=== PATIENT | female | born 1960 | race African-American/Black ===

== ENCOUNTER 2019-04-19 18:24 | Emergency (ER) | payer MEDICARE, OTHER ==
[~2019-04-19] VITALS: Ht 167.6 cm; Wt 86.2 kg
[~2019-04-19 18:24] MED LIST: FENO48TA16 PO; OMEP40CA2 PO; TRIA1TAB3 PO
[2019-04-19 19:13] VITALS: BP 130/94
--- NOTE | 2019-04-19 19:19 | PHYS DOC ---
Past Medical History Past Medical History: Hypertension Past Surgical History: Cholecystectomy, Other Additional Past Surgical Histo: hernia repair Alcohol Use: None Drug Use: None Adult General Chief Complaint Chief Complaint: MECHANICAL FALL HPI HPI Patient is a 58 year old [place] female who presents for evaluation of left knee pain, right elbow and left shoulder pain after falling from standing. Patient states she was walking yesterday at a local retail store when she tripped landing on ground. Denies hitting her head, loss of consciousness, dizziness or neck pain. Patient is not on anticoagulation therapy. Patient reports significant extremity pain throughout the day and has mostly been in bed. She is taking Flexeril and Percocet with some relief of symptoms. She is able to ambulate with steady gait and has full overdose of range of motion and injured extremities. She was not evaluated for her pain and injuries that time of the incident. She is seeking medical evaluation of her current injury. No other acute symptoms or complaints[] Review of Systems Review of Systems Review symptoms as per history of present illness.] All other systems were reviewed and found to be within normal limits, except as documented in this note. Allergies Allergies Allergies Coded Allergies Type Severity Reaction Last Updated Verified Penicillins Allergy Severe hives, itches 02/11/14 Yes Physical Exam Physical Exam Constitutional: Well developed, well nourished, no acute distress, non-toxic appearance. [] HENT: Normocephalic, atraumatic, bilateral external ears normal, oropharynx moist, no oral exudates, nose normal. [] Eyes: PERRLA, EOMI, conjunctiva normal, no discharge. [] Neck: Normal range of motion, no midline tenderness, supple, no stridor. [] Cardiovascular:Heart rate regular rhythm, no murmur [] Lungs & Thorax: Bilateral breath sounds clear to auscultation [] Back: No tenderness, no CVA tenderness. [] Extremities: L Shoulder, no swelling or deformity. Minimal pain on range of motion, right elbow, no deformity swelling or bruising, range of motion intact, minimal pain on range of motion present, left knee, no deformity swelling appreciated. Range of motion intact.[] Neurologic: Alert and oriented X 3, normal motor function, normal sensory function, no focal deficits noted. [] Psychologic: Affect normal, judgement normal, mood normal. [] EKG EKG [] Radiology/Procedures Radiology/Procedures [] Course & Med Decision Making Course & Med Decision Making Pertinent Labs and Imaging studies reviewed. (See chart for details) [Mechanical fall without head injury. Soft tissue extremity complaints after fall from standing. No deformities, significant swelling or limitations with range of motion secondary to pain. Imaging studies offered but declined. Take she just wanted to have an evaluation and recommendations. Recommend ice, NSAIDs and rest with close PCP follow-up.] Dragon Disclaimer Dragon Disclaimer This electronic medical record was generated, in whole or in part, using a voice recognition dictation system. Departure Departure Impression: Primary Impression: Fall Additional Impressions: Contusion of left shoulder Contusion of right elbow Contusion of left knee Disposition: HOME, SELF-CARE Condition: STABLE Referrals: UNKNOWN PCP NAME (PCP) Patient Instructions: Contusion, [id number] Additional Instructions: Please ibuprofen 3 times daily for pain, apply ice to affected area for 20-30 minutes every 2-3 hours for the first 2-3 days. If pain persists beyond 3 days, apply moist heat to affected areas. Follow up with your PCP next week for re- evaluation. Problem Qualifiers BREONNA KELLY DO Apr 19, 2019 19:19
== END 2019-04-19 19:32 | disposition home or self-care (01) ==
LOC: ER 18:24
DX: S40.012A Contusion of left shoulder, initial encounter (principal); S50.01XA Contusion of right elbow, initial encounter; S80.02XA Contusion of left knee, initial encounter; I10 Essential (primary) hypertension; Z88.0 Allergy status to penicillin; W01.0XXA Fall on same level from slipping, tripping and stumbling without subsequent striking against object, initial encounter; Y93.01 Activity, walking, marching and hiking; Y92.512 Supermarket, store or market as the place of occurrence of the external cause; Y99.8 Other external cause status
CPT/HCPCS: 99281

== ENCOUNTER 2019-05-19 09:30 | Emergency (ER) | payer MEDICARE, OTHER ==
[~2019-05-19] VITALS: Ht 170.2 cm; Wt 86.2 kg
[2019-05-19 10:10] VITALS: BP 138/105
[2019-05-19] MEDS ORDERED: LIDOCAINE 2% 20 ML VIAL. IJ STA (11:08)
[2019-05-19] MEDS: KETOROLAC TROMETHAMINE 10 MG TABLET PO STA (11:32)
--- NOTE | 2019-05-19 11:41 | RAD ---
Left shoulder 3 views, left humerus 2 views. HISTORY: Left shoulder pain radiating down arm, fall one month ago Left shoulder 3 views were taken of the left shoulder. There is slight spurring at the greater tuberosity. There is no acute fracture or other acute osseous abnormality. There is no dislocation at the shoulder. Left humerus 2 views were taken of the left humerus. There is no acute fracture or osseous abnormality. IMPRESSION: 1. No fracture or acute osseous abnormality in the left humerus. 2. Slight hypertrophic change at the greater tuberosity. 3. No fracture or dislocation at the left shoulder. Electronically signed by: Artis Oneil MD (05/19/2019 11:39 AM) [facility]
--- NOTE | 2019-05-19 12:00 | PHYS DOC ---
Past Medical History Past Medical History: Hypertension Past Surgical History: Cholecystectomy, Other Additional Past Surgical Histo: hernia repair Alcohol Use: None Drug Use: None Adult General Chief Complaint Chief Complaint: SHOULDER INJURY HPI HPI Patient is a 58 year old female who presents with left shoulder pain since the fall in the summer. The patient states that it stopped for a while that started hurting again 3 days before [place] and has been excruciating since that time. Patient states she took 10 of oxycodone last night. She rates her p ain 9 out of 10 in severity and sharp. Review of Systems Review of Systems Constitutional: Denies fever or chills [] Eyes: Denies change in visual acuity, redness, or eye pain [] HENT: Denies nasal congestion or sore throat [] Respiratory: Denies cough or shortness of breath [] Cardiovascular: No additional information not addressed in HPI [] GI: Denies abdominal pain, nausea, vomiting, bloody stools or diarrhea [] : Denies dysuria or hematuria [] Musculoskeletal: Reports left shoulder pain. Integument: Denies rash or skin lesions [] Neurologic: Denies headache, focal weakness or sensory changes [] Endocrine: Denies polyuria or polydipsia [] Complete systems were reviewed and found to be within normal limits, except as documented in this note. Current Medications Current Medications Current Medications Medications (Trade) Dose Ordered Sig/Luis Alberto Start Time Stop Time Status Last Admin Dose Admin Ketorolac Tromethamine (Toradol) 10 mg 1X STAT 05/19/19 11:05 05/19/19 11:14 DC 05/19/19 11:32 10 MG Lidocaine HCl 20 ml 1X STAT 05/19/19 11:08 05/19/19 11:14 DC Allergies Allergies Allergies Coded Allergies Type Severity Reaction Last Updated Verified Penicillins Allergy Severe hives, itches 02/11/14 Yes Physical Exam Physical Exam Constitutional: Well developed, well nourished, no acute distress, non-toxic appearance. [] HENT: Normocephalic, atraumatic, bilateral external ears normal, oropharynx moist, no oral exudates, nose normal. [] Eyes: PERRLA, EOMI, conjunctiva normal, no discharge. [] Neck: Normal range of motion, no tenderness, supple, no stridor. [] Cardiovascular:Heart rate regular rhythm, no murmur [] Lungs & Thorax: Bilateral breath sounds clear to auscultation [] Skin: Warm, dry, no erythema, no rash. [] Back: No tenderness, no CVA tenderness. [] Extremities: The patient has tenderness to left shoulder, has trigger point to superior trapezius muscle. Neurologic: Alert and oriented X 3, normal motor function, normal sensory function, no focal deficits noted. [] Psychologic: Affect normal, judgement normal, mood normal. [] Current Patient Data Vital Signs Vital Signs Date Time Temp Pulse Resp B/P (MAP) Pulse Ox O2 Delivery O2 Flow Rate FiO2 05/19/19 10:10 98.7 97 16 138/105 (116) 98 Room Air 98.7 EKG EKG [] Radiology/Procedures Radiology/Procedures [][address] [place] [address] IMAGING REPORT Signed PATIENT: FAVIO BANG ACCOUNT: [id number] : 1960 LOCATION: ER AGE: 58 SEX: F EXAM STATUS: REG ER ORD. PHYSICIAN: GUSTAVO NEGRON APRN REASON: fall x1 month ago. left shoulder pain radiating down arm PROCEDURE: HUMERUS LEFT Left shoulder 3 views, left humerus 2 views. HISTORY: Left shoulder pain radiating down arm, fall one month ago Left shoulder 3 views were taken of the left shoulder. There is slight spurring at the greater tuberosity. There is no acute fracture or other acute osseous abnormality. There is no dislocation at the shoulder. Left humerus 2 views were taken of the left humerus. There is no acute fracture or osseous abnormality. IMPRESSION: 1. No fracture or acute osseous abnormality in the left humerus. 2. Slight hypertrophic change at the greater tuberosity. 3. No fracture or dislocation at the left shoulder. Electronically signed by: Artis Jara MD (05/19/2019 11:39 AM) [facility] DICTATED and SIGNED BY: ARTIS JARA MD DATE: 05/19/19 1139 Course & Med Decision Making Course & Med Decision Making Pertinent Labs and Imaging studies reviewed. (See chart for details) Will give Toradol, get Imaging, and give Trigger point injections if imaging is negative. Imaging is unremarkable. Gave trigger point injection and pain disappears. Gave 2 shots in L superior trap (0.5 mL of Lidocaine). Dragon Disclaimer Dragon Disclaimer This electronic medical record was generated, in whole or in part, using a voice recognition dictation system. Departure Departure Impression: Primary Impression: Musculoskeletal pain Disposition: 01 HOME, SELF-CARE Condition: STABLE Referrals: UNKNOWN PCP NAME (PCP) Patient Instructions: Musculoskeletal Pain Additional Instructions: Thank you for visiting [facility]. We appreciate you trusting us with your care. If any additional problems come up don't hesitate to return to visit us. Please follow up with your primary care provider so they can plan additional care if needed and know about the problem that you had. If symptoms worsen come back to the Emergency Department. Any concerning symptoms that start such as chest pain, shortness of air, weakness or numbness on one side of the body, running high fevers or any other concerning symptoms return to the ER. GUSTAVO NEGRON APRN May 19, 2019 12:00
== END 2019-05-19 12:15 | disposition home or self-care (01) ==
LOC: ER 09:30
DX: M25.512 Pain in left shoulder (principal); I10 Essential (primary) hypertension; Z88.0 Allergy status to penicillin
CPT/HCPCS: 73030; 73060; 99284

== ENCOUNTER 2019-12-14 19:09 | Emergency (ER) | payer MEDICARE, OTHER ==
[~2019-12-14] VITALS: Ht 167.6 cm; Wt 87.7 kg
[2019-12-14] MEDS ORDERED: CYCL10TA2 PO (21:36)
--- NOTE | 2019-12-14 21:37 | PHYS DOC ---
Past Medical History Past Medical History: Hypertension (MARIYA CHERY APRN) Past Surgical History: Cholecystectomy, Other Additional Past Surgical Histo: hernia repair (MARIYA CHERY APRN) Smoking Status: Never Smoker Alcohol Use: Rarely Drug Use: None (MARIYA CHERY APRN) General Adult EDM: Chief Complaint: FACE PAIN HPI: HPI: Patient is a 59 year old female with a history of hypertension who presents to the ED today complaining of 10 out of 10 facial pain and posterior neck pain that began today after she accidentally ran into a pole at a stop. Patient denies any loss of consciousness. Reports most of her pain to the neck is on range of motion and touching the face. (MARIYA CHERY APRN) Review of Systems: Review of Systems: Constitutional: Denies fever or chills. [] Eyes: Denies change in visual acuity. [] HENT: Reports facial pain. Denies nasal congestion or sore throat. [] Respiratory: Denies cough or shortness of breath. [] Cardiovascular: Denies chest pain or edema. [] GI: Denies abdominal pain, nausea, vomiting, bloody stools or diarrhea. [] : Denies dysuria. [] Musculoskeletal: Reports neck pain. Denies back pain Integument: Denies rash. [] Neurologic: Denies headache, focal weakness or sensory changes. [] Endocrine: Denies polyuria or polydipsia. [] Lymphatic: Denies swollen glands. [] Psychiatric: Denies depression or anxiety. [] (MARIYA CHERY APRN) Heart Score: Risk Factors: Risk Factors: DM, Current or recent (<one month) smoker, HTN, HLP, family history of CAD, obesity. Risk Scores: Score 0 - 3: 2.5% MACE over next 6 weeks - Discharge Home Score 4 - 6: 20.3% MACE over next 6 weeks - Admit for Clinical Observation Score 7 - 10: 72.7% MACE over next 6 weeks - Early Invasive Strategies (MARIYA CHERY APRN) Allergies: Allergies: Allergies Coded Allergies Type Severity Reaction Last Updated Verified Penicillins Allergy Severe hives, itches 02/11/14 Yes (MARIYA CHERY APRN) Physical Exam: PE: Constitutional: Well developed, well nourished, no acute distress, non-toxic appearance. [] HENT: Normocephalic, atraumatic, bilateral external ears normal, oropharynx mois t, no oral exudates, nose normal. [] Tooth #8 is slightly chipped Eyes: PERRLA, EOMI, conjunctiva normal, no discharge. [] Neck: Normal range of motion, diffuse paraspinal muscle tenderness posterior cervical spine, no midline cervical spine tenderness, supple, no stridor. [] Cardiovascular:Heart rate regular rhythm, no murmur [] Lungs & Thorax: Bilateral breath sounds clear to auscultation [] Abdomen: Bowel sounds normal, soft, no tenderness, no masses, no pulsatile masses. [] Skin: Warm, dry, no erythema, no rash. [] Back: No tenderness, no CVA tenderness. [] Extremities: No tenderness, no cyanosis, no clubbing, ROM intact, no edema. [] Neurologic: Alert and oriented X 3, normal motor function, normal sensory function, no focal deficits noted. Cranial nerves II through XII intact Psychologic: Affect normal, judgement normal, mood normal. [] (MARIYA CHERY APRN) Current Patient Data: Vital Signs: Vital Signs Date Time Temp Pulse Resp B/P (MAP) Pulse Ox O2 Delivery O2 Flow Rate FiO2 12/14/19 20:32 98.5 85 16 161/112 (128) 100 Room Air 98.5 (MARIYA CHERY APRN) EKG: EKG: [] (MARIYA CHERY APRN) Radiology/Procedures: Radiology/Procedures: [] (MARIYA CHERY APRN) Course & Med Decision Making: Course & Med Decision Making Pertinent Labs and Imaging studies reviewed. (See chart for details) This is a 59-year-old female patient presenting to the ED today with with facial pain, posterior neck pain and a chipped tooth after running into pole in a store. Patient's pain is musculoskeletal. She was discharged to home. OTC medications recommended. Recommended following up with a dentist for the chipped tooth. (MARIYA CHERY APRN) Dragon Disclaimer: Dragon Disclaimer: This electronic medical record was generated, in whole or in part, using a voice recognition dictation system. (MARIYA CHERY APRN) Departure Departure Impression: Primary Impression: Facial contusion Qualified Codes: S00.83XA - Contusion of other part of head, initial encounter Additional Impressions: Acute cervical sprain Qualified Codes: S13.9XXA - Sprain of joints and ligaments of unspecified parts of neck, initial encounter Avulsion fracture of tooth Qualified Codes: S02.5XXA - Fracture of tooth (traumatic), initial encounter for closed fracture Disposition: HOME, SELF-CARE Condition: STABLE Referrals: UNKNOWN PCP NAME (PCP) follow up next week Patient Instructions: Cervical Sprain, [id number], Contusion Additional Instructions: You were evaluated in the emergency room for neck and face pain. Ice and elevate the affected areas. Take the prescribed medication as needed for pain. Please follow-up with your own dentist in 1 to 2 weeks as well as your primary care doctor Scripts Cyclobenzaprine Hcl (CYCLOBENZAPRINE HCL) 10 Mg Tablet 1 TAB PO TID, #30 TAB Prov: MARIYA CHERY APRN 12/14/19 Justicifation of Admission Dx: Justifications for Admission: Justification of Admission Dx: N/A (MARIYA CHERY APRN) Attending Signature Attending Signature I have reviewed the PA/HUMAN RESOURCES RECRUITER's note and plan of care. I was available for consultation as needed during the patient's visit in the emergency department. I agree with the clinical impression, plan, and disposition. (GUSTAVO POST DO) MARIYA CHERY APRN Dec 14, 2019 21:37 GUSTAVO POST DO Dec 14, 2019 23:30
[2019-12-14 21:43] VITALS: BP 168/111
== END 2019-12-14 21:45 | disposition home or self-care (01) ==
LOC: ER 19:09
DX: S02.5XXA Fracture of tooth (traumatic), initial encounter for closed fracture (principal); S13.4XXA Sprain of ligaments of cervical spine, initial encounter; S00.83XA Contusion of other part of head, initial encounter; I10 Essential (primary) hypertension; Z90.49 Acquired absence of other specified parts of digestive tract; Z98.890 Other specified postprocedural states; Z88.0 Allergy status to penicillin; W22.8XXA Striking against or struck by other objects, initial encounter; Y93.89 Activity, other specified; Y92.89 Other specified places as the place of occurrence of the external cause; Y99.8 Other external cause status
CPT/HCPCS: 99283

== ENCOUNTER → 2021-09-20 | Outpatient (CLI) | payer OTHER, MEDICAID ==
[~2021-09-20] MED LIST changes: +CYCL10TA19 PO
--- NOTE | 2021-09-21 12:22 | RAD ---
MR#: [id number] Date of Study: 09/20/2021 Ordering Physician: MAIDA GREENBERG, Referring Physician: ALLA SHEFFIELD Tech: CESAR Serna, FAZAL (Justine) (N) APPROVED REPORT Test Type: Exercise Stress Nurse/Tech: Swapna Michael RN Test Indications: Chest pain Cardiac History: Hypertension, High cholesterol Medications: See Electronic Medical Record Medical History: See Electronic Medical Record Resting ECG: SR Resting Heart Rate: 60 bpm Resting Blood Pressure: 114/71mmHg Pretest Chest Pain: No chest pain Nurse/Tech Notes S1,S2 and lungs clear to auscultation. Consent: The procedure was explained to the patient in lay terms. Informed consent was witnessed. Richard eout was entered into [employer]. History and Stress Test performed by CESAR Serna ARRT (R) (N) Stress Symptoms Fatigue POST EXERCISE Reason for Termination: Reached target heart rate, Fatigue Target HR: Yes Max HR: 186 bpm 137% of Maximum Predicted HR: 135 bpm Exercise duration: 7:23 min:sec, 3 Stage Exercise capacity: 10.0METs Max Blood Pressure: 142/75mmHg Blood Pressure response to exercise: Normal blood pressure response during stress. Heart Rate response to exercise: WNL Chest Pain: No. Arrhythmia: No. ST Change: No. INTERPRETATION Stress EKG Conclusion: No evidence of stress induced EKG changes. Imaging Protocol IMAGE PROTOCOL: Rest Tc-99m/stress Tc-99m 1 day Rest: Stress: Viability: Radiopharm.Tc99m GzgavcohyMl79t Sestamibi Dose10.7mCi 30mCi Img Date 09/20/2021 09/20/2021 Inj-Img [id number]. 60min. Rest Admin Site:IV - Left AntecubitalAdministrator:CESAR Serna ARRT (R)(N) Stress Admin Site: IV - Left AntecubitalAdministrator: ALAYNA Schneider STRESS DATA End Diast. Vol.44.0mlLVEDV index BSA24.0ml End Syst. Vol.10.0mlLVESV index BSA5.0ml Myocardial Mass89.0gEject. Dncfeiwx61.0% Stress Scores Regional WT0.00Summed WT0.00 Regional WM0.00Summed WM3.00 The rest and stress images show normal perfusion, normal contraction and thickening. LV Perf. Quant 17 Seg. SSS0.00 17 Seg. SRS0.00 17 Seg. SDS0.00 Stress Defect Extent (% LAD)0.00Rest Defect Extent (% LAD)0.00Rev. Defect Extent (% LAD)0.00 Stress Defect Extent (% LCX) 0.00Rest Defect Extent (% LCX)0.00Rev. Defect Extent (% LCX)0.00 Stress Defect Extent (% RCA)0.00Rest Defect Extent (% RCA)0.00Rev. Defect Extent (% RCA)0.00 Stress Defect Extent (% JAN)0.00Rest Defect Extent (% JAN)0.00Rev. Defect Extent (% JAN)0.00 Conclusion 1. No evidence of EKG changes with stress testing. 2. Normal perfusion at stress/rest. 3. Low risk study. 4. EF > 60%. Signed by : Doni Guerrero, Electronically Approved : 09/20/2021 17:51:59
== END ==
LOC: NM 08:37
PROVIDERS: ATTEND Internal Medicine Cardiovascular Disease
DX: R07.9 Chest pain, unspecified (principal)
CPT/HCPCS: 78452; 93017; A9500